=== PATIENT | male | born 1960 | race Caucasian/White ===

== ENCOUNTER 2025-06-06 08:15 | Emergency (ER) | payer BC, SELFPAY ==
[2025-06-06 08:16] VITALS: BP 142/92
[2025-06-06 08:45] VITALS: BMI 26.1
--- NOTE | 2025-06-06 08:54 | ED.GENMED ---
History of Present Illness
General
Chief Complaint: Eye Problems
Source: patient
Time Seen by Provider: 06/06/25 08:37
History of Present Illness
History of Present Illness:
65-year-old male with past medical history of controlled hypertension and hypercholesterolemia presenting to the emergency department for evaluation after he was walking his dog yesterday evening when he started to notice floaters and flashing light
sensation out of the periphery of his left eye with decreased visual acuity noting that it feels a little bit cloudier than in his right eye. No pain associated, no trauma, denies any tearing or drainage from the left eye. He does wear both
glasses and contact lenses, he was wearing contact lenses at the time yesterday but removed them but states there was no change in his symptoms. Due to the persistent nature of the symptoms as well as friends having similar issues with retinal
complications he decided come to the ER for further evaluation.
Past History
Past History
ED Past Medical History: HTN and Hypercholesterolemia
ED Past Surgical History: None
Social History
Tobacco: Former smoker
Alcohol: Occasional
Drug: None
Personal:
Living: with family
Family History
Family History: CAD
Review of Systems
Review of Systems
All Other Systems: ROS reviewed and negative except as documented in HPI and ROS
Phy Exam
Physical Exam
Physical Exam:
GENERAL: Alert , in no apparent distress
EYE: conjunctiva clear, PERRL, EOMI
FLUORESCEIN STAIN: No uptake
INTRAOCULAR PRESSURE: Left eye 9
VISUAL ACUITY: L: 20/40, R: 20/20, B: 20/20
Head: Normocephalic atraumatic
NECK: Supple,
ENT: mmm.
LUNGS: no acute respiratory distress
NEUROLOGICAL: Alert and oriented
SKIN: Warm and dry, skin intact.
MUSCULOSKELETAL: well perfused.
PSYCH: Normal and appropriate interaction.
Scores
Heart Failure Risk
Heart Failure Risk Score: Not Applicable
Heart Score for Chest Pain Patients
STEMI patient?: Not applicable
Withdrawal Assessment of Alcohol
Withdrawal Assessment Completed?: Not applicable
Course
Orders/Labs/Results
Orders:
Orders
06/06/25 09:04
Fluorescein Sodium [Ful-Jennifer] 4 mg .ROUTE .STK-MED ONE
06/06/25 09:05
Tetracaine HCl [Tetracaine 0.5% Ophthalmic Solution] 1 drop .ROUTE .STK-MED ONE
Vital Signs
Initial and Last Documented VS:
Initial Vital Signs
Temp Pulse Resp BP Pulse Ox
98.2 F 80 16 142/92 96
06/06/25 08:16 06/06/25 08:16 06/06/25 08:16 06/06/25 08:16 06/06/25 08:16
Last Documented Vital Signs
Temp Pulse Resp BP Pulse Ox
98.2 F 64 18 135/84 97
06/06/25 08:16 06/06/25 09:07 06/06/25 09:07 06/06/25 09:07 06/06/25 09:07
MDM/Problems Addressed
Differential Diagnosis Includes:
Retinal Detachment
Vitreous Hemorrhage
Corneal abrasion/ulcer
Iritis
Conjunctivitis
CVA/TIA
MDM/Problems Addressed:
65-year-old male presenting to the ER for evaluation of left eye floaters and flashing light sensation out of the periphery of his left eye. Visual acuity noted for diminished eyesight out of the left eye compared to the right, no pressure
abnormality and no pain making abrasion/ulceration very unlikely. I do have high degree of concern for retinal detachment versus vitreous hemorrhage and urgent need for ophthalmology evaluation. Will notify ophthalmology on-call to arrange for
office visit
Chronic conditions affecting care: HTN
*Pulse Oximetry
SaO2: 96
Oxygen Mode of Delivery: Room air
Patient hypoxic: no
*Critical Care Note
Total Time (30-74mins, 75-104mins- exclusive of procedures): Not Applicable
Patient Management
Discussion with other providers: [employer]
Escalation/DeEscalation of care consider admission/obs:
Case discussed with ophthalmology who states patient can come directly to the office upon discharge from the ER and they will evaluate the patient further.
ED Attending Note
-
Portions of this chart may have been created with voice recognition software.� Occasional wrong word or��sound alike� substitutions may have occurred due to the inherent limitations of voice recognition software.
Discharge Plan
Departure
Patient Disposition: Home (Routine Discharge)
Date of Disposition: 06/06/25
Time of Disposition: 09:04
Patient with high blood pressure during this ER visit?: Yes
Discharge Problem:
Subjective vision disturbance, left eye
Instructions: Detached retina
Prescriptions:
No Action
azithromycin [Zithromax] 250 MG tablet
250 mg PO UD Qty: 1 0RF
Referrals:
Elvis Ferrer MD [Family Provider, Family Practice]
Omid Matthew MD [Active, Ophthalmology]
Referral Note: Go directly to office, tell them you were sent from the ER to see Dr. Duarte
Interventions
Interventions:
*Risk Screen - Suicide Last Done: 06/06/25 08:16
*General Assessment Last Done: 06/06/25 08:42
*Neglect/Abuse Screening Last Done: 06/06/25 08:16
*ED- Fall Risk Assessment Last Done: 06/06/25 08:42
*ED COVID-19 Vaccine History Last Done: 06/06/25 08:42
*ED Influenza Vaccine History Last Done: 06/06/25 08:42
*Nursing Disposition Last Done: 06/06/25 09:08
Discharge Date and Time
Discharge Date/Time: 06/06/25 09:13
Print Language: SERBIAN
[2025-06-06 09:07] VITALS: BP 135/84
== END 2025-06-06 09:13 | disposition home or self-care (01) ==
LOC: EMR 08:15
PROVIDERS: EMERGENCY PHYSICIAN Emergency Medicine; FAMILY PHYSICIAN Family Medicine
DX: H53.10 Unspecified subjective visual disturbances (principal); I10 Essential (primary) hypertension; E78.00 Pure hypercholesterolemia, unspecified; Z87.891 Personal history of nicotine dependence
CPT/HCPCS: 99283